=== PATIENT | male | born 1990 | race Caucasian/White ===

== ENCOUNTER 2017-06-08 10:38 | Emergency (ER) | payer BC ==
[2017-06-08] MEDS ORDERED: Sodium Chloride 0.9% 2.5 ML Syringe FLUSH PRN (11:12)
[2017-06-08] MEDS ORDERED: Sodium Chloride 0.9% 10 ML Syringe FLUSH PRN (11:12)
[2017-06-08] MEDS ORDERED: Sodium Chloride 0.9% 1,000 ML IV ONE (11:24)
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
--- NOTE | 2017-06-08 12:13 | CR ---
EXAMINATION: Two-view chest (PA and Lateral views). HISTORY: Shortness of breath. FINDINGS: The trachea is midline. The cardiomediastinal silhouette is within normal limits. No pulmonary infilt rates, effusions or pneumothorax. Osseous structures appear unremarkable. IMPRESSION: No acute cardiopulmonary process.
[2017-06-08 12:15] LABS: CHLORIDE,CL 104 mmol/L (98-110); SODIUM,NA 137 mmol/L (136-146)
== END 2017-06-08 13:32 | disposition home or self-care (01) ==
LOC: MW.ED 10:38
DX: R55 Syncope and collapse (principal); F17.210 Nicotine dependence, cigarettes, uncomplicated
CPT/HCPCS: 36415; 71020; 80053; 80305; 84443; 84484; 85025; 87086; 93005; 96360; 99284; J7040